=== PATIENT | male | born 1995 | race Caucasian/White ===

== ENCOUNTER 2016-08-21 14:29 | Emergency (ER) | payer SELFPAY ==
[2016-08-21 15:20] VITALS: BP 128/77
[2016-08-21] MEDS ORDERED: Ketorolac 60 MG/2 ML SDV IM ONE (16:41)
--- NOTE | 2016-08-21 17:07 | EDM.PDOC ---
ED HPI Trauma - General Chief Complaint: Upper Extremity Injury/Pain Stated Complaint: LEFT INDEX FINGER SMASHED Time Seen by Provider: 08/21/16 17:01 Source: Reports: Patient, RN notes reviewed History Limitations: Reports: No limitations - History of Present Illness INITIAL COMMENTS - FREE TEXT/NARRATIVE: 21-year-old gentleman presents emergency department today following trauma to his left hand digit #2 this happened when he caught his finger in the car door he is experiencing pain and does have a hematoma appreciated underneath the fingernail Allergies/ADRs: Allergies No Known Allergies Allergy (Verified 08/21/16 15:28) Home Medications: Ambulatory Orders NK [No Known Home Meds] 05/26/15 [Confirmed 08/21/16] Past Medical History HEENT History: Reports: Other (see below) Other HEENT History: corneal scratch Cardiovascular History: Reports: Heart murmur, Other (see below) Other Cardiovascular History: "I have a hole in my heart". Respiratory History: Reports: Asthma Musculoskeletal History: Reports: Fracture Neurological History: Reports: Migraines - Past Surgical History GI Surgical History: Reports: Other (see below) Other GI Surgeries/Procedures: gastric surgery of some kind at 2-3 months old patient does not remember what only that he "couldn't get food down". Social & Family History - Tobacco Use Smoking Status *Q: Heavy Tobacco Smoker Years of Tobacco use: 10 Packs/Tins Daily: 1.5 Second Hand Smoke Exposure: Yes - Alcohol Use Days Per Week of Alcohol Use: 4 Number of Drinks Per Day: 24 Total Drinks Per Week: 96 - Recreational Drug Use Recreational Drug Use: No Review of Systems - Review of Systems Review Of Systems: See Below Musculoskeletal: Reports: other Skin: Reports: bruising Trauma Exam - Physical Exam Exam: See Below Text/Narrative:: Examination left hand he does have a subungual hematoma underneath the fingernail full range of motion of all digits radial pulses 2+ sensation is intact ED TRAUMA EXTREMITY PROCEDURES - I&D Site: Fingernail digit #2 left hand Skin prep: isopropyl alcohol (alcohol) Area incised with: other (Heart cautery) Drainage: bloody Probed to break up loculations: No Sterile dressing: none Complications: No Course - Vital Signs Last Recorded V/S: Last Vital Signs Temp 97.7 F 08/21/16 15:27 Pulse 76 08/21/16 15:27 Resp 16 04/04/17 15:27 BP 128/77 08/21/16 15:27 Pulse Ox 98 08/21/16 15:27 - Orders/Labs/Meds Orders: Active Orders 24 hr Category Date Time Status Fingers Second Digit Lt F1 [CR] Stat Exams 08/21/16 15:41 Taken Meds: Medications Discontinued Medications Generic Name Dose Route Start Last Admin Trade Name Myra PRN Reason Stop Dose Admin Ketorolac Tromethamine 60 mg 08/21/16 16:41 08/21/16 16:59 Toradol IM 08/21/16 16:42 60 mg ONETIME ONE Administration Departure - Departure Time of Disposition: 17:07 Disposition: Home, Self-Care 01 Condition: good Clinical Impression: Subungual hematoma of left index finger Forms: ED Department Discharge Additional Instructions: Use ibuprofen as needed for pain control, follow up with your primary care as needed - My Orders Last 24 Hours: My Active Orders 08/21/16 15:41 Fingers Second Digit Lt F1 [CR] Stat - Assessment/Plan Last 24 Hours: My Active Orders 08/21/16 15:41 Fingers Second Digit Lt F1 [CR] Stat Plan: Assessment Acuity = acute Site and laterality = subungual hematoma digit #2 left hand Etiology = secondary to trauma car door Manifestations = pain not improved Location of injury = home Lab values = x-ray digit #2 left hand I did review films myself I cannot appreciate any acute process, the official read from radiology is pending Plan He had significant improvement after the incision and drainage with electrocautery tetanus is up-to-date he was provided Toradol for pain control followup with primary care as needed Patient was in agreement with the plan all questions were answered, they were instructed to return to the emergency department or call for worsening symptoms. This note was dictated using [email or web address] voice recognition software please call with any questions.
--- NOTE | 2016-08-22 08:27 | CR ---
Fingers Second Digit Lt F1 HISTORY: crush injury FINDINGS: No acute fracture or dislocation is identified. Bony architecture and joint spaces are preserved. Soft tissues are unremarkable. IMPRESSION: No acute left second finger abnormality identified.
== END 2016-08-21 17:32 | disposition home or self-care (01) ==
LOC: JP.ED 14:29
PROC: 0H9GXZZ Drainage of Left Hand Skin, External Approach (ICD-10-PCS; principal; 2016-08-21)
DX: S60.122A Contusion of left index finger with damage to nail, initial encounter (principal); W23.1XXA Caught, crushed, jammed, or pinched between stationary objects, initial encounter; F17.210 Nicotine dependence, cigarettes, uncomplicated; J45.909 Unspecified asthma, uncomplicated
CPT/HCPCS: 10140; 73140; 96372; 99284; J1885; 11740; 99283-25